=== PATIENT | female | born 1985 | race African-American/Black ===

== ENCOUNTER 2017-05-19 11:32 | Emergency (ER) | payer MEDICAID ==
[~2017-05-19] VITALS: Ht 167.6 cm; Wt 69.4 kg
[~2017-05-19 11:32] MED LIST: HYDR-2595; PROP60CA8 PO
[2017-05-19 11:41] VITALS: BP 113/84
== END 2017-05-19 12:51 | disposition home or self-care (01) ==
LOC: ER 11:32
DX: S93.402A Sprain of unspecified ligament of left ankle, initial encounter (principal); Z88.6 Allergy status to analgesic agent; W01.0XXA Fall on same level from slipping, tripping and stumbling without subsequent striking against object, initial encounter; Y93.89 Activity, other specified; Y99.8 Other external cause status; Y92.099 Unspecified place in other non-institutional residence as the place of occurrence of the external cause
CPT/HCPCS: 73610

== ENCOUNTER 2017-10-06 23:04 | Emergency (ER) | payer MEDICAID ==
[~2017-10-06] VITALS: Ht 167.6 cm; Wt 65.8 kg
[2017-10-06 23:24] VITALS: BP 134/90
[2017-10-07 00:32] LABS: Hematocrit 35.6 % (36.0-46.0); Hemoglobin 11.9 g/dL (12.2-16.2); Mean Corpuscular Hemoglobin 30.6 pg (28.0-32.0); Mean Corpuscular Hgb Conc. 33.5 g/dL (32.0-36.0); Mean Corpuscular Volume 91.4 fL (80.0-100.0); Mean Platelet Volume 7.2 fL (6.9-10.8); Platelet Count (auto) 243 10^3/uL (140-450); Red Cell Distribution Width 13.1 % (11.8-14.3)
[2017-10-07 00:39] LABS: Metamyelocytes % 0; Myelocytes % 0; Promyelocytes % 0; Reactive Lymphocytes 0
[2017-10-07 00:58] LABS: Albumin 3.7 g/dL (3.4-5.0); Anion Gap 7 (5-15); Aspartate Aminotransferase 17 U/L (15-37); BUN/Creatinine Ratio 9.3; Blood Urea Nitrogen 8 mg/dL (7-18); Calcium 8.3 mg/dL (8.5-10.1); Carbon Dioxide 23 mmol/L (21-32); Chloride 108 mmol/L (98-107); GFR African American 98 mL/min; GFR Non-African American 81 mL/min; Glucose 108 mg/dL (74-106); Magnesium 2.2 mg/dL (1.6-2.6); Potassium 3.2 mmol/L (3.5-5.1); Sodium 138 mmol/L (136-145)
[2017-10-07 01:03] LABS: Alkaline Phosphatase 62 U/L (45-117); Bilirubin, Total 0.3 mg/dL (0.2-1.0); Total Protein 8.1 g/dL (6.4-8.2)
[2017-10-07 01:08] LABS: Platelet Estimate Adequate; RBC Morphology Normal
== END 2017-10-07 02:53 | disposition left against medical advice (07) ==
LOC: ER 23:09
DX: R07.9 Chest pain, unspecified (principal); Z53.21 Procedure and treatment not carried out due to patient leaving prior to being seen by health care provider
CPT/HCPCS: 36415; 71010; 80053; 83735; 84443; 84484; 84702; 85007; 85027; 93005

== ENCOUNTER 2018-03-17 15:43 | Emergency (ER) | payer MEDICAID | END 2018-03-17 16:32 | disposition left against medical advice (07) | LOC: ER 15:47 | DX: R11.2 Nausea with vomiting, unspecified (principal); Z53.21 Procedure and treatment not carried out due to patient leaving prior to being seen by health care provider ==